=== PATIENT | female | born 1940 | race Native Hawaiian/Other Pacific Islander ===

== ENCOUNTER 2017-07-19 20:00 | Outpatient (CLI) | payer OTHER ==
[~2017-07-19 20:00] MED LIST: AMBIEN5 MG PO; ASPIRIN 81 LOW81 MG PO; PAXIL20 MG PO; [UNRECOGNIZED DRUG - OTHER] PO
== END 2017-07-19 21:20 | disposition short-term general hospital (02) ==
LOC: AMB 20:00
DX: I21.9 Acute myocardial infarction, unspecified (principal); R07.89 Other chest pain
CPT/HCPCS: A0425; A0427